=== PATIENT | female | born 1970 ===

== ENCOUNTER 2025-09-28 13:35 | Outpatient (CLI) | payer OTHER ==
[~2025-09-28 13:35] MED LIST: ALLEGRA ALLERG180 MG PO; DILTIAZEM 24HR360 MG PO; FLONASE ALLERG9.9 ML NS; FLONASE16 GM NS; GILTUSS TR TAB1 EACH PO; MEDROL4 MG PO; OSTERA TABLET1 EACH; SINGULAIR 10MG10 MG; SYNTHROID175 MCG PO; TESSALON PERLE100 M1; TESSALON PERLE100 M1 PO; VASOTEC10 MG PO; ZITHROMAX200 MG PO
== END 2025-09-28 13:44 | disposition home or self-care (01) ==
LOC: SONOGRAMA 13:35
DX: C73 Malignant neoplasm of thyroid gland (principal)